=== PATIENT | female | born 1995 | race American Indian/Alaskan Native ===

== ENCOUNTER 2017-06-20 11:00 | Inpatient (IN) | payer OTHER ==
[~2017-06-20] VITALS: Ht 167.6 cm; Wt 63.0 kg
[~2017-06-20 11:00] MED LIST: KEFLEX500 MG PO; PRENATAL TABLE1 EAC1 PO; RESTORA RX CAP1 EACH PO
== END 2017-07-08 10:38 | disposition home or self-care (01) | DRG 775 ==
LOC: LDR 07-06 04:35 → OB/GYN 07-06 11:00
PROC: 10E0XZZ Delivery of Products of Conception, External Approach (ICD-10-PCS; principal; 2017-07-06)
PROC: 0W8NXZZ Division of Female Perineum, External Approach (ICD-10-PCS; 2017-07-06)
PROC: 4A1HXCZ Monitoring of Products of Conception, Cardiac Rate, External Approach (ICD-10-PCS; 2017-07-06)
PROC: 4A033R1 Measurement of Arterial Saturation, Peripheral, Percutaneous Approach (ICD-10-PCS; 2017-07-06)
PROC: 10907ZC Drainage of Amniotic Fluid, Therapeutic from Products of Conception, Via Natural or Artificial Opening (ICD-10-PCS; 2017-07-06)
DX: O80 Encounter for full-term uncomplicated delivery (principal); Z37.0 Single live birth; Z3A.40 40 weeks gestation of pregnancy

== ENCOUNTER → 2017-06-25 | Outpatient (CLI) | payer OTHER | END | disposition home or self-care (01) | LOC: NST 11:04 | DX: Z34.03 Encounter for supervision of normal first pregnancy, third trimester (principal) ==